=== PATIENT | female | born 1985 | race Caucasian/White ===

== ENCOUNTER 2016-06-06 21:35 | Emergency (ER) | payer MEDICAID ==
[2016-06-06 22:22] LABS: BASOPHIL# 0.1 X 10^3uL (0.0-0.1); BASOPHILS 0.9 % (0.0-2.0); EOSINOPHILS 1.9 % (0.0-6.0); EOSINOPHILS# 0.2 X 10^3uL (0.0-0.4); HEMOGLOBIN 17.3 g/dL (12.0-16.0); LYMPHOCYTES# 2.8 X 10^3uL (0.8-3.8); MEAN CELL VOLUME 101.4 fL (80.0-100.0); MEAN CORPUS. HGB CONCENTRATION 33.9 g/dL (32.0-36.0); MEAN CORPUSCULAR HEMOGLOBIN 34.4 pg (29.0-35.0); MONOCYTES 5.4 % (2.0-10.0); MONOCYTES# 0.5 X 10^3uL (0.2-1.0); NEUTROPHILS 63.8 % (54.0-75.0); NEUTROPHILS# 6.3 X 10^3uL (2.6-6.7); PLATELET COUNT 249 X 10^3uL (130-440); RED BLOOD COUNT 5.03 X 10^6uL (4.20-6.10); RED CELL DISTRIBUTION WIDTH 12.5 % (11.5-14.5); WHITE BLOOD COUNT 9.9 X 10^3uL (3.9-10.7)
[2016-06-06 22:29] LABS: BLOOD UREA NITROGEN 8 mg/dL (7-17); CALCIUM 10.1 mg/dL (8.4-10.2); CHLORIDE 105 mmol/L (98-107); CREATININE 0.8 mg/dL (0.5-1.0); EST GLOMERULAR FILTRATION RATE > 60 mL/min; ETHYL ALCOHOL 168 mg/dL (<10); GLUCOSE 86 mg/dL (70-100); POTASSIUM 3.9 mmol/L (3.5-5.1); SODIUM 143 mmol/L (137-145)
[2016-06-06 22:32] LABS: URINE APPEARANCE CLEAR; URINE COLOR YELLOW; URINE LEUKOCYTE ESTERASE NEGATIVE (NEGATIVE); URINE NITRITE NEGATIVE (NEGATIVE); URINE PH 5.5 (5-7); URINE SPECIFIC GRAVITY < or = 1.005 (0.001-1.035)
[2016-06-06 22:33] LABS: URINE BILIRUBIN NEGATIVE (NEGATIVE); URINE BLOOD NEGATIVE (NEGATIVE); URINE GLUCOSE NORMAL (NEGATIVE); URINE KETONE NEGATIVE (NEGATIVE); URINE PROTEIN NEGATIVE (NEG - TRACE); URINE UROBILINOGEN 0.2mg/dL (Normal) (NEG-1mg/dL)
[2016-06-06 22:52] LABS: ACETAMINOPHEN < 10.0 ug/mL (10.0-30.0); SALICYLATE < 1.0 mg/dL (<20.0)
[2016-06-06 23:00] LABS: THYROID STIMULATING HORMONE 2.68 uIU/mL (0.47-4.68)
--- NOTE | 2016-06-06 23:06 | ER NURSING DOCUMENTATION ---
Nurse's Notes [facility] Name:Francisca Duarte Age:30 yrs Sex:Female :1985 Arrival Date:06/06/2016 Time:21:35 BedTrauma-A Private MD:Duyen Michel Diagnosis:Suicide Attempt;Major Depression with Suicidal Ideation;Alcohol Abuse Presentation: 06/06 21:39 Transition of care: Home. ma 21:39 Acuity: FABI 2 ma 21:39 Method Of Arrival: Police ma 21:58 Presenting complaint: Patient states: Patient states she feels suicidal States took ma multiple medications 4 days ago in failed attempt Per [employer] she told them she also tried to drown herself Multiple self inflicted wds to extremities in various stages of healing Pt states she knows she needs help. 22:23 Presenting complaint: Patient states: PT took zofran, an unknown antibiotic and rh cimetidine four days ago to try and kill herself, she also attempted to drown herself by putting weights on her ankles and walking into a retention pond, however it wasn't deep enough. Pt here because she has suicidal ideations. Pt was drinking alcohol daily a few months ago, however she has been sober for a few weeks. pt is sober tonight and denies drugs/alcohol. Pt is also homeless as of tonight. Triage Assessment: 21:41 General: Appears in no apparent distress, Behavior is cooperative. Pain: Denies pain. rh EENT: Oral mucosa is dry. Neuro: Level of Consciousness is awake, alert, obeys commands, Oriented to person, place, time, event. Cardiovascular: Capillary refill < 3 seconds. Respiratory: Airway is patent Respiratory effort is even, unlabored. GI: Denies nausea. : No deficits noted. Derm: Skin is intact, Hesitation king bilateral arms Skin is pink, warm & dry. Musculoskeletal: Circulation, motion, and sensation intact Range of motion intact in all extremities. Historical: - Allergies: Valium; PENICILLINS; - Home Meds: 1. Zofran Oral - PMHx: Jaw Pain (September 19, 2015); PTSD; BIPOLAR DISORDER; SCHIZOPHRENIA; - PSHx: jaw; - Tetanus: < 10 years. - Ebola Screening: : Patient negative for fever greater than or equal to 101.5 degrees Fahrenheit, and additional compatible Ebola Virus Disease symptoms. - Immunization history: Flu Vaccine None. - Social history: Smoking status: Patient uses tobacco products, current every day smoker. Screenin:42 Infectious Disease Risk Unable to Obtain. Abuse screen:. Nutritional screening: No rh deficits noted. Suicide Risk Assessment: Suicidal Thinking Present - Yes ( 2 points), Past Attempts - Yes (1 point), Credible Suicide Plan - Yes (3 points), Means to Kill Self Available - Yes (3 points), Has Serious Health Problem - Yes (1 point), Lives Alone - Yes (1 point). Assessment: 21:42 See Triage Assessment done by same RN. rh Vital Signs: 21:39 BP 132 / 83; Pulse 104; Resp 18; Temp 98.3; Pulse Ox 97% on R/A; Weight 72.57 kg; ma Height 5 ft. 7 in. (170.18 cm); Pain 0/10; 22:03 BP 122 / 84; Pulse 102; Resp 16; Pulse Ox 95% on R/A; Pain 0/10; rh 22:36 BP 121 / 83; Pulse 99; Resp 15; Pulse Ox 96% on R/A; rh 21:39 Body Mass Index 25.06 (72.57 kg, 170.18 cm) ne ED Course: 21:36 Patient arrived in ED. em2 21:36 Duyen Michel is Private Physician. em2 21:39 Triage completed. ne 21:40 Charley Jorge is Primary Nurse. rh 21:42 Notified ED Physician of patient's arrival and chief complaint. Dr. Jimenez notified. rh 21:42 Valuables Remains with patient Patient has correct armband on for positive rh identification. Placed in gown. Bed in low position. Call light in reach. Side rails up X2. 21:43 Heraclio Jimenez MD is Attending Physician. ri 21:43 Assisted to bathroom. rh 21:57 Inserted saline lock: 22 gauge in right antecubital area and blood collected. em1 Administered Medications: 22:02 Drug: NS 0.9% 1000 ml; Route: IV; Rate: bolus; Site: right antecubital; rh 22:43 Follow up: IV Status: Infusion discontinued; IV Intake: 450ml rh 22:59 Drug: Zofran 4 mg; Route: PO; rh 22:59 Follow up: Response: No adverse reaction; Nausea is decreased rh Intake: 22:43 IV: 450ml; Total: 450ml. rh Outcome: 22:26 Transferred: Patient will be transferred to: [facility]. Facility rh Acceptance Time: June 06, 2016 at 22:26 Patient's face sheet was faxed to accepting facility. Face Sheet included patient's name, address, age, gender, contact information and insurance information. Patient will be transported by: [facility]. Report called to: [facility] at [facility] Nurse and Physician Charting and Notes were sent to Accepting Facility. All tests and/or procedures with results, if applicable, were sent to accepting facility. 22:26 Condition: stable 22:26 Instructed on need for transfer 22:34 ER care complete, transfer ordered by . ri 23:05 Patient left the ED. Signatures: Annalisa Rivera, RN RN Heraclio Montelongo MD MD ri [place], [facility] em1 [facility]king-reg, [facility] em2 Charley Jorge rh
--- NOTE | 2016-06-06 23:06 | ER PHYSICIAN DOCUMENTATION ---
Physician Documentation [facility] Name:Farncisca Duarte Age:30 yrs Sex:Female :1985 Arrival Date:06/06/2016 Time:21:35 BedTrauma-A Private MD:Duyen Michel ED, Scott Disposition: 06/06/16 22:[address] [facility]. Diagnosis are Suicide Attempt, Major Depression with Suicidal Ideation, Alcohol Abuse. - Reason for transfer: Specialty. - Accepting physician is Dr. Carlson. - Condition is Serious. - Problem is an ongoing problem. - Symptoms are unchanged. COBRA Form completed? Yes Transfer - Mode of Transportation Ambulance HPI: 06/06 22:26 This 30 yrs old Female presents to ER via Police with complaints of Suicidal sc Ideation. 22:26 The patient presents to the emergency department with depression, a history of a sc suicide gesture, where the patient cut wrists, where the patient took pills/medications, tried to drown herself in retention pond, suicide ideation, and the patient has a plan, to overdose with medications. Onset: The symptom(s)/episode began/occurred at an unknown time. Past psychiatric history: Prior diagnosis: addiction history, bipolar disorder, depression, schizophrenia, Psychiatric medications include: none, Primary psychiatric physician: the patient does not have a primary psychiatric physician, the patient has had a prior suicide gesture, the patient has a previous inpatient psychiatric history, 10 year(s) ago. Associated signs and symptoms: Pertinent positives; depression, hallucinations, paranoia. The patient has experienced similar episodes in the past, chronically. Historical: - Allergies: Valium; PENICILLINS; - Home Meds: 1. Zofran Oral - PMHx: Jaw Pain (September 19, 2015); PTSD; BIPOLAR DISORDER; SCHIZOPHRENIA; - PSHx: jaw; - Tetanus: < 10 years. - Ebola Screening: : Patient negative for fever greater than or equal to 101.5 degrees Fahrenheit, and additional compatible Ebola Virus Disease symptoms. - Immunization history: Flu Vaccine None. - Social history: Smoking status: Patient uses tobacco products, current every day smoker. ROS: 22:29 Constitutional: Negative for fever, chills, and weight loss. sc Eyes: Negative for injury, pain, redness, and discharge. Neck: Negative for injury, pain, and swelling. Cardiovascular: Negative for chest pain, palpitations, and edema. Respiratory: Negative for shortness of breath, cough, wheezing, and pleuritic chest pain. Abdomen/GI: Negative for abdominal pain, nausea, vomiting, diarrhea, and constipation. Back: Negative for injury and pain. MS/Extremity: Negative for injury and deformity. Skin: Negative for injury, rash, and discoloration. 22:29 Neuro: Negative for headache, weakness, numbness, tingling, and seizure. sc 22:29 ENT: Positive for dental pain. 22:29 Psych: Positive for depression, alcohol dependence, auditory hallucinations, visual hallucinations, suicide gesture, suicidal ideation. Exam: Constitutional: This is a well developed, well nourished patient who is awake, alert, and in no acute distress. Head/Face: Normocephalic, atraumatic. Eyes: Pupils equal round and reactive to light, extra-ocular motions intact. Lids and lashes normal. Conjunctiva and sclera are non-icteric and not injected. Cornea within normal limits. Periorbital areas with no swelling, redness, or edema. Neck: Trachea midline, no thyromegaly or masses palpated, and no cervical lymphadenopathy. Supple, full range of motion without nuchal rigidity, or vertebral point tenderness. No meningismus. Chest/axilla: Normal chest wall appearance and motion. Nontender with no deformity. No lesions are appreciated. Cardiovascular: Regular rate and rhythm with a normal S1 and S2. No gallops, murmurs, or rubs. Normal PMI, no JVD. No pulse deficits. Respiratory: Lungs have equal breath sounds bilaterally, clear to auscultation and percussion. No rales, rhonchi or wheezes noted. No increased work of breathing, no retractions or nasal flaring. Abdomen/GI: Soft, non-tender, with normal bowel sounds. No distension or tympany. No guarding or rebound. No evidence of tenderness throughout. Back: No spinal tenderness. No costovertebral tenderness. Full range of motion. MS/ Extremity: Pulses equal, no cyanosis. Neurovascular intact. Full, normal range of motion, negative Homans's, calves equal bilaterally. 22:30 Neuro: Awake and alert, GCS 15, oriented to person, place, time, and situation. sd Cranial nerves II-XII grossly intact. Motor strength 5/5 in all extremities. Sensory grossly intact. Cerebellar exam normal. Normal gait. 22:30 ENT: Mouth: Gums: swollen, on the tongue, from previous oral surgery after mandible fx, just finished abx. 22:30 Skin: Appearance: normal except for affected area, injury, laceration(s), hundreds of superficial scratches on arms and legs, no signs infection. 22:30 Psych: Behavior/mood is cooperative, depressed, Affect is flat, Oriented to person, place, time, Patient having thoughts of suicide. Judgement / Insight is normal. Memory is normal. Delusions/hallucinations but hallucinations voices etc for past month. Vital Signs: 21:39 BP 132 / 83; Pulse 104; Resp 18; Temp 98.3; Pulse Ox 97% on R/A; Weight 72.57 kg; ma Height 5 ft. 7 in. (170.18 cm); Pain 0/10; 22:03 BP 122 / 84; Pulse 102; Resp 16; Pulse Ox 95% on R/A; Pain 0/10; rh 22:36 BP 121 / 83; Pulse 99; Resp 15; Pulse Ox 96% on R/A; rh 21:39 Body Mass Index 25.06 (72.57 kg, 170.18 cm) nv MDM: 21:43 Patient medically screened. sd 22:32 Differential diagnosis: acute psychotic break, depression, psychosis secondary to sc non-compliance. Data reviewed: vital signs, nurses notes, lab test result(s), and as a result, I will *Transfer Patient. Counseling: I had a detailed discussion with the patient and/or guardian regarding: the historical points, exam findings, and any diagnostic results supporting the discharge/admit diagnosis, lab results, the need to transfer to another facility. Physician consultation: Dr. Carlson was called at 22:33, was contacted at 22:33, regarding patient's condition. 06/06 22:28 Order name: CBC AUTO DIF, MDIF/RMOR IF IND EDMS 06/06 22:35 Interpretation: Normal. sd 06/06 22:35 Order name: HCG, SERUM EDMS 06/06 22:35 Interpretation: Normal. sd 06/06 22:35 Order name: UA W/O MICRO - PINKY, CUL IF IND EDMS 06/06 22:57 Interpretation: Normal: Normal. sd 06/06 22:54 Order name: BASIC METABOLIC PANEL [facility] 06/06 22:57 Interpretation: Normal. sd 06/06 22:54 Order name: SALICYLATE [facility] 06/06 22:57 Interpretation: Normal. sd 06/06 22:54 Order name: ETHYL ALCOHOL [facility] 06/06 22:57 Interpretation: Abnormal: ETHYL ALCOHOL 168. sd 06/06 22:54 Order name: ACETAMINOPHEN [facility] 06/06 22:57 Interpretation: Normal: ACETAMINOPHEN < 10.0. sd 06/06 23:02 Order name: THYROID STIMULATING HORMONE [facility] 06/06 21:57 Order name: Suicide Precautions; Complete Time: 21:57 rh Dispensed Medications: 22:02 Drug: NS 0.9% 1000 ml; Route: IV; Rate: bolus; Site: right antecubital; rh 22:43 Follow up: IV Status: Infusion discontinued; IV Intake: 450ml rh 22:59 Drug: Zofran 4 mg; Route: PO; rh 22:59 Follow up: Response: No adverse reaction; Nausea is decreased rh Signatures: Annalisa Rivera RN RN ma Chew, Scott, MD MD sd [facility]
[2016-06-06] MEDS ORDERED: ONDANSETRON ODT 4 MG TAB.RAPDIS ONE (23:09)
[2016-06-07 14:46] LABS: ALBUMIN 4.9 g/dL (3.5-5.0); ALKALINE PHOSPHATASE 77 U/L (38-126); ALT 31 U/L (9-52); AST 23 U/L (14-36); BILIRUBIN, DIRECT 0.1 mg/dL (0.0-0.4); BILIRUBIN, TOTAL 0.4 mg/dL (0.2-1.3)
== END 2016-06-06 23:05 | disposition short-term general hospital (02) ==
LOC: ER 21:35
DX: F32.9 Major depressive disorder, single episode, unspecified (principal); R45.851 Suicidal ideations; F10.229 Alcohol dependence with intoxication, unspecified; R44.3 Hallucinations, unspecified; F17.210 Nicotine dependence, cigarettes, uncomplicated; K08.89 Other specified disorders of teeth and supporting structures; Z98.890 Other specified postprocedural states; T07 Unspecified multiple injuries; Z79.899 Other long term (current) drug therapy; Z76.89 Persons encountering health services in other specified circumstances
CPT/HCPCS: 80048; 80076; 80305; 80307; 80320; 80329; 81003; 84443; 84703; 85025; 96360; 99285